=== PATIENT | female | born 1935 | race Two or more races ===

== ENCOUNTER 2024-12-10 00:22 | Emergency (ER) | payer OTHER, MEDICAID, SELFPAY ==
[2024-12-10 00:26] VITALS: BMI 31.2
[2024-12-10 01:04] LABS: Collection Type, Urine Clean Catch; Squamous Epithelial Cell,Urine 0 /hpf (0-5)
[2024-12-10 01:10] VITALS: BP 160/82; PULSE 80; RESP 18; TEMP 36.9; O2SAT 91
--- NOTE | 2024-12-10 01:20 | EDRME_ITS ---
Rapid Medical Screening Exam [facility] Arrival date/time: 12/10/24 00:22 89-year-old female presents to the emergency department with a complaint of urinary frequency she describes as every 5 minutes. Denies nausea or vomiting. Patient was seen recently for cough and given doxycycline. Chief Complaint: Abdominal Pain Vital signs: Vital Signs Temperature 98.5 F 12/10/24 01:10 Pulse Rate 80 12/10/24 01:10 Respiratory Rate 18 12/10/24 01:10 Blood Pressure 160/82 H 12/10/24 01:10 Pulse Oximetry (%) 91 L 12/10/24 01:10 Oxygen Delivery Method Room Air 12/10/24 01:10 Pulse ox room air is 91% Vital signs reviewed by provider: Yes
[2024-12-10 01:26] LABS: Bilirubin,Urine Negative (Negative); Blood,Urine Negative (Negative); Clarity,Urine Clear (Clear/Hazy); Color,Urine Colorless (Lt Yel-Yel); Culture Indicated,Urine Not Indicated; Glucose, Urine Negative (Negative); Ketones,Urine Negative (Negative); Leukocyte Esterase,Urine Negative (Negative); Nitrite,Urine Negative (Negative); Protein,Urine Negative (Neg - Trace); RBC,Urine 2 /hpf (0-3); Specific Gravity,Urine 1.006 (1.001-1.035); Urobilinogen,Urine Negative mg/dL (0.0-1.0); WBC,Urine 1 /hpf (0-5)
[2024-12-10 01:41] LABS: Basophils % (Auto) 0 % (0-2.5); Eosinophils # (Auto) 0.2 Thou/mm3 (0.0-0.5); Eosinophils % (Auto) 2 % (0-10); Hematocrit 42.8 % (36.0-46.0); Immature Granulocytes % (Auto) 0 % (0-0); Immature Granulocytes Auto 0.01 Thou/mm3 (0.00-0.00); Lymphocytes # (Auto) 3.1 Thou/mm3 (1.0-4.8); Lymphocytes % (Auto) 47 % (10-50); Mean Corpuscular Hemoglobin 34.6 pg (25.0-35.0); Mean Corpuscular Volume 99 fL (80-100); Monocytes # (Auto) 0.6 Thou/mm3 (0.0-0.8); Monocytes % (Auto) 10 % (0-12); Neutrophils # (Auto) 2.7 Thou/mm3 (1.8-7.7); Neutrophils % (Auto) 41 % (37-80); Nucleated Red Blood Cell % 0 /100 WBC (0); Platelet Count 142 Thou/mm3 (140-440); RDW Standard Deviation 43.8 fL (36.4-46.3); Red Blood Count 4.34 Miln/mm3 (4.00-5.20); White Blood Count 6.6 Thou/mm3 (3.6-11.0)
[2024-12-10 02:01] LABS: Alanine Aminotransferase 11 U/L (10-49); Albumin, Serum 4.4 gm/dL (3.4-4.8); Alkaline Phosphatase 117 U/L (46-116); Anion Gap 7 (7-16); Aspartate Amino Transferase 21 U/L (0-34); BUN/Creatinine Ratio 18 Ratio (12-20); Bilirubin,Total 0.8 mg/dL (0.3-1.2); Blood Urea Nitrogen 11 mg/dL (9-23); Calcium 9.5 mg/dL (8.3-10.6); Calcium (Corrected) 9.5 mg/dL (8.5-10.1); Carbon Dioxide 24.3 mMol/L (20.0-31.0); Chloride 103 mMol/L (98-107); Creatinine (Component) 0.6 mg/dL (0.6-1.3); Estimated Creatinine Clearance 58.7 mL/min (>60); Globulin 2.2 gm/dL (2.3-3.5); Glucose 118 mg/dL (74-106); Lipase 35 U/L (12-53); Osmolality,Calculated 268 (275-295); Sodium 134 mMol/L (136-145); Total Protein 6.6 gm/dL (5.7-8.2); eGFR > 60 See Note
[2024-12-10 02:25] VITALS: BP 155/92; PULSE 86; RESP 15; TEMP 36.6
--- NOTE | 2024-12-10 02:37 | EDNOTE_ITS ---
ED Abdominal Pain RME/HPI General Chief Complaint: Abdominal Pain Stated complaint: FREQUENT URINATION LOW ABD PAIN Arrival date/time: 12/10/24 00:22 RME / HPI RME / HPI narrative: 12/10/24 00:22 89-year-old female presents to the emergency department with a complaint of urinary frequency she describes as every 5 minutes. Denies nausea or vomiting. Patient was seen recently for cough and given doxycycline. ------ Dr. Calixto?s Main ED Evaluation: 89yo female with a history of HTN, stomach ulcer BIB her daughter presents to the ED for complaints of urinary frequency and urgency. Patient states she feels like she needs to urinate every 5 minutes . Patient reports associated mild LLQ pain. Patient does have a history of chronic constipation. She denies any N/V, fever, chills, diarrhea or any other associ ated symptoms. Denies any previous abdominal surgeries. NKA. Related Data Home Medications ?Medication ?Instructions ?Recorded ?Confirmed albuterol sulfate 4 mg 4 mg PO BID ##0 03/26/16 tablet,extended release,12 hr (Vospire ER) budesonide 90 mcg/actuation breath 1 puff inhalation B ID #0 03/26/16 activated powder inhaler inhalations (Pulmicort Flexhaler) metoprolol succinate 100 mg 50 mg PO QDAY ##0 03/26/16 tablet,extended release 24 hr (Toprol XL) albuterol sulfate 90 mcg/actuation 2 puff inhalation Q 6HR PRN 03/27/16 aerosol inhaler (Proventil HFA) SHORTNESS OF BREATH #0 inhalations Previous Rx's ?Medication ?Instructions ?Recorded Benazepril Hcl 40 mg PO BID #60 tabs amlodipine 10 mg tablet (Norvasc) 10 mg PO QDAY 30 day s #0 tabs 03/29/16 nystatin 100,000 unit/mL oral 5 ml PO QID #240 mL 100 10/18 suspension Allergies Allergy/AdvReac Type Severity Reaction Status Date / Time NKA* Allergy Uncoded 12/10/24 00:32 Review of Systems Review of Systems Systems Reviewed: All systems reviewed, normal except as documented Past Medical History Past Medical History OTHER HISTORY: Negative Blood Transfusions Social History SMOKING STATUS: Never smoker ED Exam Narrative Physical exam: GENERAL APPEARANCE: AxOx4, generally well-appearing, no acute distress. HEENT: NC, AT. MMM. EOMI, clear conjunctiva, oropharynx clear. NECK: Supple without lymphadenopathy. No stiffness or restricted ROM. HEART: Normal rate and regular rhythm, normal S1/S1, no m/r/g LUNGS: CTAB, moving air well. No crackles or wheezes are heard. ABDOMEN: Soft, mlld diffuse abdominal pain, nontender, nondistended with good bowel sounds heard. BACK: No midline C/T/L spine pain or deformity, No CVAT, no obvious deformity. EXTREMITIES: Without cyanosis, clubbing or edema. MUSCULOSKELETAL: FROM of all major joints, no chest tenderness NEUROLOGICAL: Grossly nonfocal. Alert and oriented, moving all 4 extremities. CN not formally tested but appear grossly intact. Skin: Warm and dry without any rash. Course Quality Measures none Orders Category Date Time Status CBC Stat Lab 12/10/24 01:35 Completed Comprehensive Metabolic Panel Stat Lab 12/10/24 01:35 Completed Lipase Stat Lab 12/10/24 01:35 Completed Urinalysis, C/S if Indicated Stat Lab 12/10/24 00:50 Completed Acetaminophen Tab [Tylenol Tab] Med 12/10/24 02:37 Discontinued 650 mg PO X1 ONE Vital Signs Vital signs: Vital Signs Temperature 98.5 F 12/10/24 01:10 Pulse Rate 80 12/10/24 01:10 Respiratory Rate 18 12/10/24 01:10 Blood Pressure 160/82 H 12/10/24 01:10 Pulse Oximetry (%) 91 L 12/10/24 01:10 Oxygen Delivery Method Room Air 12/10/24 01:10 Abdominal Pain MDM MDM Narrative MDM Narrative:: Scribe Attestation: 12/10/24 Gabriela Ireland am scribing for and in the presence of Dr. Calixto. Patient data External records reviewed:: [facility] previous records (Per chart review, patient has no previous ED visits or admissions to this facility.) Clinical information provided by:: patient and family Social determinants that could affect healthcare access:: none Patient has the following chronic illnesses:: HTN, stomach ulcer How is presenting disease/condition affected by chronic disease/condition?: uneffected by Evaluation data The following diagnostics were reviewed and interpreted by me:: lab results Lab and/or radiology exams considered but not ordered:: none Interpretation Summary: CBC is normal, CMP is normal, Lipase is normal, UA is unremarkable, according to my interpretation. Medications / Prescriptions Medications or Prescriptions considered but not ordered:: none Medication administrations:: Medication Administration History Discontinued Medications Acetaminophen (Acetaminophen 325 Mg Tablet) 650 mg PO X1 ONE Stop: 12/10/24 02:38 Last Admin: 12/10/24 02:43 Dose: 650 mg Documented By: TIO none Consultations Consultation(s) initiated? (list below): No Diagnosis Differential diagnosis abdominal pain: diverticulitis and other (UTI, cystitis) Most likely diagnosis given after review of the tests above:: see clinical impression below Admission Indicated Admission indicated?: not indicated Admission Request Was there a request for admission?: No Disposition Plan Disposition Plan: Discharge Discharge Attestation Discharge Attestation: The patient and all family members were given an opportunity to ask questions and understood the discharge instructions. Discharge instructions specifically effects, indications for sooner follow up or return to the emergency department, and the expected course of current diagnosis. Patient condition: Stable Discharge Plan Plan Patient Disposition: HOME (Self Care) Prescriptions/Referrals Prescriptions/Med Rec: No Action metoprolol succinate [Toprol XL] 100 MG tablet extended release 24 hr 50 mg PO QDAY Qty: 0 albuterol sulfate [Vospire ER] 4 MG tablet extended release 12 hr 4 mg PO BID Qty: 0 budesonide [Pulmicort Flexhaler] 90 MCG/AER POW aerosol powdr breath activated 1 puff Inhalation BID Qty: 0 albuterol sulfate [Proventil HFA] 6.7 GM HFA aerosol inhaler 2 puff Inhalation Q6HR PRN (Reason: SHORTNESS OF BREATH) Qty: 0 amlodipine [Norvasc] 10 MG tablet 10 mg PO QDAY 30 Days Qty: 0 1RF Benazepril Hcl 40 MG tablet 40 mg PO BID Qty: 60 0RF nystatin 60 ML suspension 5 ml PO QID Qty: 240 0RF Referrals: Geo Asencio MD [Primary Care Provider] - In 1 week Problem List Clinical Impression: Dysuria-frequency syndrome Patient/Caregiver Discharge Instructions Education Materials: Anatomy of the Female Urinary Tract Additional Instructions: Acuda a michael consulta de seguimiento con metzger m?dico de atenci?n primaria en 2 o 3 d?as para un nuevo control. Print Language: Kenyan Stand Alone Forms: Portia Award Info., Patient Portal Info Letter
[2024-12-10] MEDS: ACETAMINOPHEN 325 MG TABLET 650 MG PO (02:43)
== END 2024-12-10 02:49 | disposition home or self-care (01) ==
PROVIDERS: Physician Assistant; Emergency Provider Emergency Medicine; PCP Family Medicine
DX: R30.0 Dysuria (principal); R35.0 Frequency of micturition; I10 Essential (primary) hypertension; R10.32 Left lower quadrant pain
CPT/HCPCS: 36415; 80053; 81001; 83690; 85025; 99283; A9270